=== PATIENT | male | born 1965 | race Caucasian/White ===

== ENCOUNTER 2025-06-11 09:12 | Emergency (ER) | payer SELFPAY ==
[2025-06-11 09:25] VITALS: BP 124/91
--- NOTE | 2025-06-11 10:05 | ED.GENMED ---
History of Present Illness
General
Chief Complaint: Back Pain
Source: patient
Exam Limitations: none
Time Seen by Provider: 06/11/25 10:00
History of Present Illness
History of Present Illness:
60-year-old male with history of hypertension hyperlipidemia presents complaining of lower back pain mainly on the right side. He was working yesterday slipped on loose gravel and almost fell but caught himself when he caught himself he has
significant pain to the lower back. He tried ibuprofen last night without relief. He denies any associated leg pain bowel or bladder dysfunction or perianal anesthesia. He drove himself here. He discussed this with work pending visit here.
Phy Exam
Physical Exam
Physical Exam:
General: Well-appearing male no acute respiratory distress
HEENT normal cephalic atraumatic heart: Regular rate and rhythm
Lungs: Clear no wheeze
Musculoskeletal exam: There is tenderness about the lower lumbar spine over the midline as well as the lower right paraspinous area. Range of motion to the lower extremities
Neurologic exam: Good sensation and strength to lower extremities. Bilateral patellar reflexes 2+. Negative straight leg raise bilaterally
Course
Orders/Labs/Results
Orders:
Orders
06/11/25 10:05
CR Lumbar Spine 2 Or 3 Views Urgent
Comment:
Reason For Exam: back pain
Vital Signs
Initial and Last Documented VS:
Initial Vital Signs
Temp Pulse Resp BP Pulse Ox
98.6 F 91 16 124/91 100
06/11/25 09:25 06/11/25 09:25 06/11/25 09:25 06/11/25 09:25 06/11/25 09:25
Last Documented Vital Signs
Temp Pulse Resp BP Pulse Ox
98.6 F 91 16 124/91 100
06/11/25 09:25 06/11/25 09:25 06/11/25 09:25 06/11/25 09:25 06/11/25 10:07
MDM/Problems Addressed
Differential Diagnosis Includes:
Lower back pain after twist and near fall but caught himself. Likely muscular strain. No significant leg symptoms to suggest radiculopathy. No red flag signs to suggest cauda equina or infectious source. He is tender over the midline. X-rays
pending. Will anticipate prescribe muscle relaxers and anti-inflammatories
*Pulse Oximetry
SaO2: 100
Oxygen Mode of Delivery: Room air
Patient hypoxic: no
*Critical Care Note
Total Time (30-74mins, 75-104mins- exclusive of procedures): Not Applicable
Update Note
Update Note:
X-rays show no obvious bony abnormality other than straightening of the normal curvature. Suspect underlying muscular spasm. Recommend muscle relaxers and anti-inflammatories. Stable for discharge
ED Attending Note
-
Portions of this chart may have been created with voice recognition software.� Occasional wrong word or��sound alike� substitutions may have occurred due to the inherent limitations of voice recognition software.
Discharge Plan
Departure
Patient Disposition: Home (Routine Discharge)
Date of Disposition: 06/11/25
Time of Disposition: 10:31
Patient with high blood pressure during this ER visit?: No
Discharge Problem:
Lumbar strain
Instructions: Low Back Pain (DC)
Prescriptions:
New
diazepam [Valium] 5 mg tablet
5 mg PO TID PRN (Reason: muscle spasm) Qty: 10 0RF
prednisone 20 mg tablet
40 mg PO DAILY 5 Days Qty: 10 0RF
Stand Alone Forms: Return to Work
Activity Restrictions/Additional Instructions:
Rest. Use warm compresses to the back. Use muscle relaxers and steroid as directed. May also consider using lighted Derm patches [id number]. Return if worse otherwise follow-up with your work-related physician
Interventions
Interventions:
*Risk Screen - Suicide Last Done: 06/11/25 09:25
*General Assessment Last Done: 06/11/25 09:25
*Neglect/Abuse Screening Last Done: 06/11/25 09:25
Discharge Date and Time
Print Language: SERBIAN
== END 2025-06-11 11:21 | disposition home or self-care (01) ==
LOC: EMR 09:12
PROVIDERS: EMERGENCY PHYSICIAN Emergency Medicine; FAMILY PHYSICIAN Physician Assistant
DX: S39.012A Strain of muscle, fascia and tendon of lower back, initial encounter (principal); I10 Essential (primary) hypertension; E78.5 Hyperlipidemia, unspecified; W18.41XA Slipping, tripping and stumbling without falling due to stepping on object, initial encounter; X50.1XXA Overexertion from prolonged static or awkward postures, initial encounter; Y93.01 Activity, walking, marching and hiking
CPT/HCPCS: 99283; 72100